=== PATIENT | male | born 1980 | race African-American/Black ===

== ENCOUNTER 2017-06-24 14:09 | Inpatient (IN) | payer BC ==
[~2017-06-24] VITALS: Ht 170.2 cm; Wt 84.9 kg
[2017-06-24] VITALS (12 sets, daily range): BP systolic 148–191; BP diastolic 88–121
[~2017-06-24 14:09] MED LIST: IV NORMAL SALINE 1000ML BAG 1,000 ML IV SCH
[2017-06-24] MEDS ORDERED: IV NORMAL SALINE 1000ML BAG 1,000 ML IV SCH (14:22)
[2017-06-24] MEDS ORDERED: ASPIRIN CHEWABLE 81 MG TABLET. PO ONE (14:30)
--- NOTE | 2017-06-24 14:44 | RAD ---
Indication left-sided chest pain. Some difficulty breathing. A single view of the chest was obtained. No prior imaging of the chest is available. The heart, pulmonary vessels and mediastinum appear normal. The lungs are clear. There is no pleural fluid or pneumothorax. Bony structures appear grossly intact. IMPRESSION: Normal single view of the chest
[2017-06-24 14:45] LABS: CALCIUM 9.8 mg/dL (8.5-10.1); CREATININE 1.3 mg/dL (0.7-1.3); GFR 61.5; POTASSIUM 3.6 mmol/L (3.5-5.1)
[2017-06-24] MEDS ORDERED: IOHEXOL 300 MG/ML 75 ML VIAL IV ONE (14:45)
[2017-06-24 14:49] LABS: BASO # 0.1 x10^3/uL (0.0-0.2); BASO % 1 % (0-3); EOS % 2 % (0-3); HEMATOCRIT 50.9 % (39.0-53.0); HEMOGLOBIN 16.7 g/dL (13.0-17.5); LYMPH # 3.5 x10^3/uL (1.0-4.8); LYMPH % 21 % (24-48); MEAN CORPUSCULAR HEMOGLOBIN 28 pg (25-35); MEAN CORPUSCULAR HGB CONC 33 g/dL (31-37); MEAN CORPUSCULAR VOLUME 86 fL (79-100); MONO % 8 % (0-9); NEUT % 69 % (31-73); PLATELET COUNT 284 x10^3/uL (140-400); RED BLOOD COUNT 5.94 x10^6/uL (4.30-5.70); WHITE BLOOD COUNT 16.8 x10^3/uL (4.0-11.0)
[2017-06-24 14:53] LABS: ALBUMIN 4.4 g/dL (3.4-5.0); ALBUMIN/GLOBULIN RATIO 1.1 (1.0-1.7); TOTAL BILIRUBIN 0.7 mg/dL (0.2-1.0); TOTAL PROTEIN 8.4 g/dL (6.4-8.2)
[2017-06-24] MEDS ORDERED: IOHEXOL 300 MG/ML 75 ML VIAL ONE (14:57)
[2017-06-24] MEDS ORDERED: CONTRAST GIVEN MC PRN ×2 (15:00→17:30)
--- NOTE | 2017-06-24 15:09 | RAD ---
Indication chest pain and shortness of breath for several days. Axial images through the chest were obtained. Examination was tailored for the detection of pulmonary embolus. MIP images were generated and reviewed. Approximately 75 cc of Omnipaque 300 was administered intravenously. No prior CT imaging of the chest is available. The study, evaluating for pulmonary embolus is somewhat limited. There is not optimal opacification of the pulmonary arteries. No large central pulmonary emboli are seen. There are low-density areas associated with right upper lobe branches which is likely artifactual and secondary to streak artifact. The thoracic aorta appears unremarkable. There is no significant hilar or mediastinal adenopathy. An acute parenchymal infiltrate in either lung is not seen. There is no dominant soft tissue mass in either lung. Imaging through the upper abdomen is unremarkable. IMPRESSION: Slightly limited study evaluating for pulmonary embolus. No definite large central pulmonary emboli seen. No acute finding apparent in the chest PQRS Compliance Statement: One or more of the following individualized dose reduction techniques were utilized for this examination: 1. Automated exposure control 2. Adjustment of the mA and/or kV according to patient size 3. Use of iterative reconstruction technique
[2017-06-24] MEDS ORDERED: NITROGLYCERIN OINT 1 GM PACKET. ONE (15:18)
[2017-06-24] MEDS ORDERED: NITROGLYCERIN OINT 1 GM PACKET. TP ONE (15:30)
[2017-06-24] MEDS ORDERED: HEPARIN for IV BOLUS 10,000 UNIT/10 ML VIAL. IV ONE ×2 (15:30→17:15)
--- NOTE | 2017-06-24 15:32 | PDOC2 ---
TASHA WASHINGOTN CORPORATE TRAVEL COORDINATOR 06/24/17 1532: CARDIAC CONSULT DATE OF CONSULT Date of Consult DATE: 06/24/17 TIME: 15:31 REASON FOR CONSULT Reason for Consult: NSTEMI REFERRING PHYSICIAN Referring Physician: Dr. Rojas SOURCE Source: Chart review, Patient HISTORY OF PRESENT ILLNESS HISTORY OF PRESENT ILLNESS This is a 37 yo male, with no significant medical history other than hypertension, who presented with shortness of breath and chest pain. Patient reports dyspnea has been present since Thursday night. Much worse with exertion. Chest pain has been intermittent. Brought on with activity. Resolves with rest. Located in his central chest. Describes as stabbing in nature. Associated with nausea. No diaphoresis, palpitations, or dizziness. Went to work and was sent home as he was visibly dyspneic. Presently stable and CP free. Blood pressure noted to be significantly elevated upon arrival to ED. Initial trop at 37. EKG with t-wave inversion of lateral leads. PAST MEDICAL HISTORY Cardiovascular: HTN Pulmonary: No pertinent hx GI: No pertinent hx Heme/Onc: No pertinent hx Hepatobiliary: No pertinent hx Psych: No pertinent hx Rheumatologic: No pertinent hx Infectious disease: No pertinent hx ENT: No pertinent hx Renal/: No pertinent hx Endocrine: No pertinent hx Dermatology: No pertinent hx PAST SURGICAL HISTORY Past Surgical History: No pertinent history FAMILY HISTORY Family History: Diabetes SOCIAL HISTORY Smoke: No ALCOHOL: none Drugs: Marijuana (occasional ) Lives: with Family CURRENT MEDICATIONS CURRENT MEDICATIONS Current Medications Medications (Trade) Dose Ordered Sig/Natalie Route PRN Reason Start Time Stop Time Status Last Admin Dose Admin Sodium Chloride 1,000 ml @ 100 mls/hr Q10H IV 06/24/17 14:22 06/25/17 00:21 06/24/17 14:34 Aspirin (Children'S Aspirin) 324 mg 1X ONCE PO 06/24/17 14:30 06/24/17 14:31 DC 06/24/17 14:34 Iohexol (Omnipaque 300 Mg/ml) 75 ml 1X ONCE IV 06/24/17 14:45 06/24/17 14:48 DC 06/24/17 14:56 Nitroglycerin (Nitro-Bid Oint) 1 inch 1X ONCE TP 06/24/17 15:30 06/24/17 15:31 06/24/17 15:20 ALLERGIES ALLERGIES: Coded Allergies: No Known Drug Allergies (Unverified , 9/20/17) ROS Review of System 14 point ROS conducted with pertinent positives note above in HPI. PHYSICAL EXAM General: Alert, Oriented X3, Cooperative, No acute distress HEENT: Atraumatic, Mucous membr. moist/pink Lungs: Clear to auscultation, Normal air movement Heart: Regular rate, Normal S1, Normal S2 Abdomen: No tenderness Extremities: No edema, Normal pulses Skin: No breakdown, No significant lesion Neuro: Normal speech, Sensation intact Psych/Mental Status: Mental status NL, Mood NL MUSCULOSKELETAL: Osteoarthritic changes both hands VITALS VITALS Vital Signs Date Time Temp Pulse Resp B/P (MAP) Pulse Ox O2 Delivery O2 Flow Rate FiO2 06/24/17 15:20 76 155/99 06/24/17 14:20 98.2 18 100 Room Air 98.2 LABS Lab: Laboratory Tests Test 06/24/17 14:30 White Blood Count 16.8 x10^3/uL (4.0-11.0) Red Blood Count 5.94 x10^6/uL (4.30-5.70) Hemoglobin 16.7 g/dL (13.0-17.5) Hematocrit 50.9 % (39.0-53.0) Mean Corpuscular Volume 86 fL (79-100) Mean Corpuscular Hemoglobin 28 pg (25-35) Mean Corpuscular Hemoglobin Concent 33 g/dL (31-37) Red Cell Distribution Width 15.0 % (11.5-14.5) Platelet Count 284 x10^3/uL (140-400) Neutrophils (%) (Auto) 69 % (31-73) Lymphocytes (%) (Auto) 21 % (24-48) Monocytes (%) (Auto) 8 % (0-9) Eosinophils (%) (Auto) 2 % (0-3) Basophils (%) (Auto) 1 % (0-3) Neutrophils # (Auto) 11.5 x10^3uL (1.8-7.7) Lymphocytes # (Auto) 3.5 x10^3/uL (1.0-4.8) Monocytes # (Auto) 1.4 x10^3/uL (0.0-1.1) Eosinophils # (Auto) 0.3 x10^3/uL (0.0-0.7) Basophils # (Auto) 0.1 x10^3/uL (0.0-0.2) Sodium Level 144 mmol/L (136-145) Potassium Level 3.6 mmol/L (3.5-5.1) Chloride Level 104 mmol/L (98-107) Carbon Dioxide Level 29 mmol/L (21-32) Anion Gap 11 (6-14) Blood Urea Nitrogen 11 mg/dL (8-26) Creatinine 1.3 mg/dL (0.7-1.3) Estimated GFR (Cockcroft-Gault) 61.5 BUN/Creatinine Ratio 8 (6-20) Glucose Level 92 mg/dL (70-99) Calcium Level 9.8 mg/dL (8.5-10.1) Total Bilirubin 0.7 mg/dL (0.2-1.0) Aspartate Amino Transf (AST/SGOT) 78 U/L (15-37) Alanine Aminotransferase (ALT/SGPT) 43 U/L (16-63) Alkaline Phosphatase 166 U/L (46-116) Troponin I Quantitative 37.709 ng/mL (0.000-0.055) Total Protein 8.4 g/dL (6.4-8.2) Albumin 4.4 g/dL (3.4-5.0) Albumin/Globulin Ratio 1.1 (1.0-1.7) ASSESSMENT/PLAN ASSESSMENT/PLAN 1. NSTEMI 2. Angina 3. Malignant hypertension 4. Dyspnea; PE ruled out Recommendations ASA Heparin gtt per CV protocol Labetalol IV PRN Check lipids Obtain echo to assess LV function/ presence of WMA Given presentation and EKG changes in the setting of NSTEMI, recommend cardiac catheterization with possible PCI. R/b/a discuss with patient and is agreeable. Keep NPO. Problems: YVETTE LAWS MD 06/24/17 1803: CARDIAC CONSULT ALLERGIES ALLERGIES: Coded Allergies: No Known Drug Allergies (Unverified , 06/24/17) ASSESSMENT/PLAN ASSESSMENT/PLAN Pt. seen and examined. Agree with above NURSING CONSULTANT note. Coronary angiography revealed 1V CAD with acute mid RCA plaque rupture. s/p PCI with a drug eluting stent. See orders for med changes. thanks for consultation. Problems: TASHA WASHINGTON APRN Jun 24, 2017 15:32 YVETTE LAWS MD Jun 24, 2017 18:03
--- NOTE | 2017-06-24 15:39 | EKG ---
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
[2017-06-24] MEDS ORDERED: fentaNYL PF VIAL 100 MCG/2 ML VIAL ONE (15:42)
[2017-06-24] MEDS: HEPARIN 25,000UTS/500ML PREMIX 500 ML IV PRN ×2 (15:42→18:09)
[2017-06-24] MEDS ORDERED: MIDAZOLAM HCL/PF 5 MG/5 ML VIAL. ONE (15:43)
[2017-06-24] MEDS ORDERED: NITROGLYCERIN 200 MCG/2 ML SYRINGE FOR CATH/VASC LAB. ONE (15:43)
[2017-06-24] MEDS ORDERED: VERAPAMIL 5 MG/2 ML VIAL. ONE (15:43)
[2017-06-24] MEDS ORDERED: IODIXANOL 320 MG/ML 100 ML VIAL. ONE (15:44)
[2017-06-24] MEDS ORDERED: LIDOCAINE 2% 20 ML VIAL. ONE (15:44)
[2017-06-24] MEDS ORDERED: ONDANSETRON PF 4 MG/2 ML VIAL. IV PRN (15:45)
[2017-06-24] MEDS ORDERED: MORPHINE SULFATE 2 MG/ML DISP.SYRIN. IV PRN (15:45)
[2017-06-24] MEDS ORDERED: TIROFIBAN 12.5MG -0.9% NS 250 ML IV ONE (17:00)
--- NOTE | 2017-06-24 17:09 | PHYS DOC ---
Past Medical History Past Medical History: Hypertension Past Surgical History: No Surgical History Alcohol Use: Occasionally Drug Use: Marijuana Adult General Chief Complaint Chief Complaint: CHEST PAIN HPI HPI 37-year-old male with a past medical history of untreated and uncontrolled hypertension now presents the emergency department complaining of chest pain and shortness of breath. Patient states he is previously been told he had high blood pressure however he was never compliant with treatment and does not currently have a doctor. Over the last several days patient has experienced substernal chest pressure which is intermittent and now relieved. He's been getting exertional shortness of breath which is been worsening. He went to work this morning but got sent home because he was visibly short of breath so he came to the emergency department for evaluation. Patient denies pleuritic pain. Has no productive cough or fever. Patient has never had a stress test or cardiac catheterization. He is not a smoker, he has no high cholesterol that he is aware of however he has not gotten it checked. His mother is a diabetic however he has never been tested for diabetes. He is not aware of history of coronary artery disease and states his mom of complications of diabetes. Review of Systems Review of Systems Constitutional: Denies fever or chills [] Eyes: Denies change in visual acuity, redness, or eye pain [] HENT: Denies nasal congestion or sore throat [] Respiratory: Denies cough or shortness of breath [] Cardiovascular: No additional information not addressed in HPI [] GI: Denies abdominal pain, nausea, vomiting, bloody stools or diarrhea [] : Denies dysuria or hematuria [] Musculoskeletal: Denies back pain or joint pain [] Integument: Denies rash or skin lesions [] Neurologic: Denies headache, focal weakness or sensory changes [] Endocrine: Denies polyuria or polydipsia [] Current Medications Current Medications Current Medications Medications (Trade) Dose Ordered Sig/Natalie Start Time Stop Time Status Last Admin Dose Admin Aspirin (Children'S Aspirin) 324 mg 1X ONCE 06/24/17 14:30 06/24/17 14:31 DC 06/24/17 14:34 324 MG Heparin Sodium (Porcine) (Heparin Sodium) 4,000 unit 1X ONCE 06/24/17 15:30 06/24/17 15:33 DC 06/24/17 15:43 4,000 UNIT Heparin Sodium/ Dextrose 500 ml @ 0 mls/hr CONT PRN 06/24/17 15:30 06/24/17 15:42 20.88 MLS/HR Info (Do NOT chart on this entry -- for MONITORING) 1 each PRN DAILY PRN 06/24/17 15:00 06/26/17 14:59 Iohexol (Omnipaque 300 Mg/ml) 75 ml STK-MED ONCE 06/24/17 14:57 06/24/17 14:58 DC Nitroglycerin (Nitro-Bid Oint) 1 inch STK-MED ONCE 06/24/17 15:18 06/24/17 15:19 DC Sodium Chloride 1,000 ml @ 100 mls/hr Q10H 06/24/17 11:30 06/24/17 21:29 Allergies Allergies Allergies Coded Allergies Type Severity Reaction Last Updated Verified No Known Drug Allergies 06/24/17 No Physical Exam Physical Exam Well-appearing patient no acute distress no vomiting or diaphoresis normal respiratory rate and pulse ox on room air. No tachycardia. Clear lungs regular rate and rhythm. Patient does have some mildly reproducible chest wall tenderness anteriorly bilateral. No skin changes or bony tenderness no subcutaneous air. Nontender abdomen no CVA tenderness normal extremities with no asymmetry Constitutional: Well developed, well nourished, no acute distress, non-toxic appearance. [] HENT: Normocephalic, atraumatic, bilateral external ears normal, oropharynx moist, no oral exudates, nose normal. [] Eyes: PERRLA, EOMI, conjunctiva normal, no discharge. [] Neck: Normal range of motion, no tenderness, supple, no stridor. [] Cardiovascular:Heart rate regular rhythm, no murmur [] Lungs & Thorax: Bilateral breath sounds clear to auscultation [] Abdomen: Bowel sounds normal, soft, no tenderness, no masses, no pulsatile masses. [] Skin: Warm, dry, no erythema, no rash. [] Back: No tenderness, no CVA tenderness. [] Extremities: No tenderness, no cyanosis, no clubbing, ROM intact, no edema. [] Neurologic: Alert and oriented X 3, normal motor function, normal sensory function, no focal deficits noted. [] Psychologic: Affect normal, judgement normal, mood normal. [] Current Patient Data Vital Signs Vital Signs Date Time Temp Pulse Resp B/P (MAP) Pulse Ox O2 Delivery O2 Flow Rate FiO2 06/24/17 15:20 76 155/99 06/24/17 14:20 98.2 18 100 Room Air 98.2 Lab Values Laboratory Tests Test 06/24/17 14:30 White Blood Count 16.8 x10^3/uL (4.0-11.0) H Red Blood Count 5.94 x10^6/uL (4.30-5.70) H Hemoglobin 16.7 g/dL (13.0-17.5) Hematocrit 50.9 % (39.0-53.0) Mean Corpuscular Volume 86 fL (79-100) Mean Corpuscular Hemoglobin 28 pg (25-35) Mean Corpuscular Hemoglobin Concent 33 g/dL (31-37) Red Cell Distribution Width 15.0 % (11.5-14.5) H Platelet Count 284 x10^3/uL (140-400) Neutrophils (%) (Auto) 69 % (31-73) Lymphocytes (%) (Auto) 21 % (24-48) L Monocytes (%) (Auto) 8 % (0-9) Eosinophils (%) (Auto) 2 % (0-3) Basophils (%) (Auto) 1 % (0-3) Neutrophils # (Auto) 11.5 x10^3uL (1.8-7.7) H Lymphocytes # (Auto) 3.5 x10^3/uL (1.0-4.8) Monocytes # (Auto) 1.4 x10^3/uL (0.0-1.1) H Eosinophils # (Auto) 0.3 x10^3/uL (0.0-0.7) Basophils # (Auto) 0.1 x10^3/uL (0.0-0.2) PTT 28 SEC (24-38) Sodium Level 144 mmol/L (136-145) Potassium Level 3.6 mmol/L (3.5-5.1) Chloride Level 104 mmol/L (98-107) Carbon Dioxide Level 29 mmol/L (21-32) Anion Gap 11 (6-14) Blood Urea Nitrogen 11 mg/dL (8-26) Creatinine 1.3 mg/dL (0.7-1.3) Estimated GFR (Cockcroft-Gault) 61.5 BUN/Creatinine Ratio 8 (6-20) Glucose Level 92 mg/dL (70-99) Calcium Level 9.8 mg/dL (8.5-10.1) Magnesium Level 2.2 mg/dL (1.8-2.4) Total Bilirubin 0.7 mg/dL (0.2-1.0) Aspartate Amino Transferase (AST) 78 U/L (15-37) H Alanine Aminotransferase (ALT) 43 U/L (16-63) Alkaline Phosphatase 166 U/L (46-116) H Troponin I Quantitative 37.709 ng/mL (0.000-0.055) QY-Kkh-A-Type Natriuretic Peptide 3657 pg/mL (0-124) H Total Protein 8.4 g/dL (6.4-8.2) H Albumin 4.4 g/dL (3.4-5.0) Albumin/Globulin Ratio 1.1 (1.0-1.7) Laboratory Tests 06/24/17 14:30 Laboratory Tests 06/24/17 14:30 EKG EKG EKG with normal sinus rhythm at [address]. [address] segment depression with T-wave inversion V5 V6 no STEMI interpreted by me[] Radiology/Procedures Radiology/Procedures Chest x-ray no acute disease interpreted by me[] Course & Med Decision Making Course & Med Decision Making Pertinent Labs and Imaging studies reviewed. (See chart for details) 87-year-old male with no prior known cardiac history presents the emergency department with accelerated hypertension initially 220/120. He's pain-free in the ED. Repeat blood pressure value 160/90. Nitroglycerin paste on anterior chest wall and aspirin have been given. EKG with ischemic changes laterally including ST segment depression and T-wave inversion. Troponin returned at 37. This was promptly discussed with cardiology service of Dr. Carballo,. His staff is aware the history and findings. And agrees with CBC admission to hospital list service and they will provide consultation and take patient promptly to the catheterization lab for evaluation and intervention as needed. Cardiology service agrees with cardiac heparinization bolus and drip and this was initiated. She is stable and continues to be pain-free with nitroglycerin paste applied. Vital signs stable and unremarkable after improvement of blood pressure. His discussed with Dr. Allen Cox hospitalist on-call his work history and findings and accept the patient in patient to his services. Critical care 74 minutes [] Dragheather Disclaimer Dragon Disclaimer This electronic medical record was generated, in whole or in part, using a voice recognition dictation system. Departure Departure Impression: Primary Impression: Chest pain Additional Impressions: Non-STEMI (non-ST elevated myocardial infarction) Accelerated hypertension Acute electrocardiogram changes Disposition: ADMITTED INPATIENT Condition: GUARDED Referrals: NO PCP (PCP) Problem Qualifiers ROE DE LEÓN MD Jun 24, 2017 17:09
[2017-06-24] MEDS ORDERED: HEPARIN for IV BOLUS 10,000 UNIT/10 ML VIAL. IART ONE (17:15)
[2017-06-24] MEDS ORDERED: NITROGLYCERIN 200 MCG/2 ML SYRINGE FOR CATH/VASC LAB. IART ONE (17:15)
[2017-06-24] MEDS ORDERED: VERAPAMIL 5 MG/2 ML VIAL. IART ONE (17:15)
[2017-06-24] MEDS ORDERED: MIDAZOLAM HCL/PF 5 MG/5 ML VIAL. IV ONE (17:15)
[2017-06-24] MEDS ORDERED: fentaNYL PF VIAL 100 MCG/2 ML VIAL IV ONE (17:15)
[2017-06-24] MEDS ORDERED: LIDOCAINE 2% 20 ML VIAL. IJ ONE (17:15)
[2017-06-24] MEDS ORDERED: IODIXANOL 320 MG/ML 100 ML VIAL. IART ONE (17:15)
[2017-06-24] MEDS ORDERED: NITROGLYCERIN 200 MCG/2 ML SYRINGE FOR CATH/VASC LAB. ICAR ONE (17:17)
[2017-06-24] MEDS ORDERED: PRASUGREL 10 MG TABLET. ONE (17:18)
[2017-06-24] MEDS ORDERED: PRASUGREL 10 MG TABLET. PO ONE (17:30)
[2017-06-24] MEDS: TIROFIBAN 12.5MG -0.9% NS 250 ML IV PRN (17:40)
--- NOTE | 2017-06-24 19:05 | CARD ---
APPROVED REPORT Procedure(s) performed: SEDATION TIME: 54 MINUTES Coronary angiography PCI of the RCA HISTORY The patient is a 37 year-old male with a history of : tobacco history() , hypertension. INDICATION The indication(s) include : non-STEMI Trop of 39. CASE TECHNIQUE During this case, Fluoroscopy and low osmolar contrast were used for imaging. PROCEDURE NARRATIVE The patient was brought electively to the cardiac catheterization lab. A timeout was performed confi rming the patient's name, date of , procedure, and site of procedure. All necessary personnel w ere wearing the appropriate protective equipment and radiation monitor devices. After explaining the risks and benefits of the procedure and alternatives, informed consent was obtained. (See nursing no minh for medications administered). The right wrist was sterilely prepped and draped in the usual fas hion. The right wrist was infiltrated with 1 mL of 2% lidocaine for subcutaneous anesthesia. A 6 Fr ench Terumo glide sheath was inserted into the right radial artery without difficulty. Right and lef t coronary angiography was performed using a 6Fr TIG 4.0 catheter. HEMODYNAMICS: AO: 180/84 LEFT VENTRICULOGRAM: Deferred due to high contrast load from recent CT scan. CORONARY ANGIOGRAPHY: LM is a large caliber vessel with normal angiographic appearance. LAD is a large caliber vessel with normal angiographic appearance. Ramus is a moderate caliber bifurcating vessel with an ostial 40% stenosis. LCx is a moderate to large caliber co-dominant vessel with normal angiographic appearance. OM1 is a small caliber vessel with normal angiographic appearance. LPL/LPDA is a moderate to large caliber vessel with normal angiographic appearance. RCA is a moderate caliber tortuous co-dominant vessel with a proximal to mid 50% stenosis, followed b y a mid acute plaque rupture in the mid segment with a 90% stenosis. RPDA and RPL are small caliber vessels with normal angiographic appearance. INTERVENTIONAL TECHNIQUE: Based upon the presenting symptoms of dyspnea, chest pain and elevated biomarkers an intervention was performed. Heparin and tirofiban were used for anticoagulation. Through a 6F JR4 guide catheter, a 0 .014'' Prowater wire was advanced to the distal RCA. Next, a Trek 2.5/12 balloon was used to angiopla sty the RCA. The lesion was then stented with a 3.0/15 Xience SOPHIE at 12 kings for 1 min. Post-PCI angio graphy revealed excellent stent expansion with FAHAD 3 flow. There was proximal pseudostenosis related to the wire which resolved after NTG administration and removal. All catheter exchanges and adv ancements were performed over a guidewire. At case completion the right radial sheath was removed an d a Terumo radial band was applied with 13 ml of air. The patient tolerated the procedure well and t here were no immediate complications. The patient received Prasugrel 60mg at case completion. Conclusion 1. NSTEMI with one vessel CAD involving the mid RCA 2. Successful PCI of the mid RCA with implantation of a Xience 3.0/18 SOPHIE. Recommendations ASA 81mg daily indefinitely Prasugrel 10mg daily for 1 full year, consider lifelong DAPT if tolerated High dose statin therapy Jewel-inh after renal function stable. Cardiac rehab referral.
[2017-06-24] MEDS: ATORVASTATIN CALCIUM 20 MG TABLET PO SCH (21:28)
[2017-06-24] MEDS: LABETALOL 20 MG/4 ML DISP.SYRIN. IVP PRN (21:37)
--- NOTE | 2017-06-24 21:43 | HP ---
ADMIT DATE: 06/24/2017 CHIEF COMPLAINT: Chest pain. HISTORY OF PRESENT ILLNESS: The patient is a pleasant, healthy 37-year-old male who presented with chest pain. He does have hypertension. His pressures were in the 200s when he arrived, but interestingly, he had ST changes as troponin was 37. He was taken emergently to the photo lab manager and received a stent. He is now being examined on the telemetry floor. PAST MEDICAL HISTORY: Hypertension, noncompliance. ALLERGIES: None. FAMILY HISTORY: Diabetes. SOCIAL HISTORY: Does not drink, smoke or take drugs. MEDICATIONS: Reviewed. REVIEW OF SYSTEMS: GENERAL: No history of weight change, weakness or fevers. SKIN: No bruising, hair changes or rashes. EYES: No blurred, double or loss of vision. NOSE AND THROAT: No history of nosebleeds, hoarseness or sore throat. HEART: No history of palpitations, chest pain or shortness of breath on exertion. LUNGS: Denies cough, hemoptysis, wheezing or shortness of breath. GASTROINTESTINAL: Denies changes in appetite, nausea, vomiting, diarrhea or constipation. GENITOURINARY: No history of frequency, urgency, hesitancy or nocturia. NEUROLOGIC: Denies history of numbness, tingling, tremor or weakness. PSYCHIATRIC: No history of panic, anxiety or depression. ENDOCRINE: No history of heat or cold intolerance, polyuria or polydipsia. EXTREMITIES: Denies muscle weakness, joint pain, pain on walking or stiffness. PHYSICAL EXAMINATION: VITAL SIGNS: Temperature afebrile, pulse 92, respirations 18, blood pressure is down to 180/106. It was as high as 208/129. HEART: Distant S1, S2. LUNGS: Clear. ABDOMEN: Soft. EXTREMITIES: No edema. SKIN: No rashes. PSYCHIATRIC: He is stable. VASCULAR: Good capillary refill. ENDOCRINE: No thyromegaly. LYMPHATICS: No cervical nodes. HEMATOPOIETIC: No bruising. LABORATORY DATA: White count 16.8, hemoglobin 16.7, platelets 284. Electrolytes normal. Troponin was 37.709. BNP 3657. EKG shows ST changes. ASSESSMENT AND PLAN: Acute myocardial infarction with the incidental finding of leukocytosis. The patient went emergent for cardiac catheterization and stent, suspect the leukocytosis is reactive, but will follow his vital signs and temperature closely if he spikes a fever or consider adding antibiotics. Continue cardiac monitoring, add in beta sandra, RJ inhibitors, statins and as needed Lasix. PROGNOSIS: Guarded. COLBY JAMESON DO DR: DENIS/ludy JOB#: [id number] / [id number]
[2017-06-25] VITALS (10 sets, daily range): BP systolic 157–181; BP diastolic 77–124
[2017-06-25] MEDS: TIROFIBAN 12.5MG -0.9% NS 250 ML IV PRN (03:53)
[2017-06-25] MEDS: LABETALOL 20 MG/4 ML DISP.SYRIN. IVP PRN ×2 (03:53→20:43)
[2017-06-25 05:32] LABS: CHOLESTEROL/HDL RATIO 4.9
[2017-06-25 08:38] LABS: CALCIUM 8.8 mg/dL (8.5-10.1); CREATININE 1.2 mg/dL (0.7-1.3); GFR 81.6; POTASSIUM 3.3 mmol/L (3.5-5.1)
[2017-06-25] MEDS: PRASUGREL 10 MG TABLET. PO SCH (08:45)
[2017-06-25] MEDS: ASPIRIN ENTERIC COATED 81 MG TABLET.DR. PO SCH (08:45)
[2017-06-25] MEDS ORDERED: LISI-338 PO (10:39)
[2017-06-25] MEDS ORDERED: ASPI-612 PO (10:39)
[2017-06-25] MEDS ORDERED: PRAS10TA9 PO (10:39)
[2017-06-25] MEDS ORDERED: ATOR40TA59 PO (10:39)
[2017-06-25] MEDS ORDERED: CARV3.122 PO (10:39)
--- NOTE | 2017-06-25 11:09 | PDOC ---
CARDIO Progress Notes Date and Time Date of Service 06/25/17 Time of Evaluation 1030 Subjective Subjective: No Chest Pain, No shortness of breath, No Palpitations Vitals Vitals Vital Signs Date Time Temp Pulse Resp B/P (MAP) Pulse Ox O2 Delivery O2 Flow Rate FiO2 06/25/17 08:00 Room Air 06/25/17 07:00 98.9 62 16 160/106 (124) 99 98.9 Weight Weight [ ] Laboratory Labs Laboratory Tests Test 06/24/17 14:30 06/24/17 17:06 06/25/17 01:00 06/25/17 04:45 White Blood Count 16.8 x10^3/uL (4.0-11.0) Red Blood Count 5.94 x10^6/uL (4.30-5.70) Hemoglobin 16.7 g/dL (13.0-17.5) Hematocrit 50.9 % (39.0-53.0) Mean Corpuscular Volume 86 fL (79-100) Mean Corpuscular Hemoglobin 28 pg (25-35) Mean Corpuscular Hemoglobin Concent 33 g/dL (31-37) Red Cell Distribution Width 15.0 % (11.5-14.5) Platelet Count 284 x10^3/uL (140-400) Neutrophils (%) (Auto) 69 % (31-73) Lymphocytes (%) (Auto) 21 % (24-48) Monocytes (%) (Auto) 8 % (0-9) Eosinophils (%) (Auto) 2 % (0-3) Basophils (%) (Auto) 1 % (0-3) Neutrophils # (Auto) 11.5 x10^3uL (1.8-7.7) Lymphocytes # (Auto) 3.5 x10^3/uL (1.0-4.8) Monocytes # (Auto) 1.4 x10^3/uL (0.0-1.1) Eosinophils # (Auto) 0.3 x10^3/uL (0.0-0.7) Basophils # (Auto) 0.1 x10^3/uL (0.0-0.2) Activated Partial Thromboplast Time 28 SEC (24-38) Sodium Level 144 mmol/L (136-145) Potassium Level 3.6 mmol/L (3.5-5.1) Chloride Level 104 mmol/L (98-107) Carbon Dioxide Level 29 mmol/L (21-32) Anion Gap 11 (6-14) Blood Urea Nitrogen 11 mg/dL (8-26) Creatinine 1.3 mg/dL (0.7-1.3) Estimated GFR (Cockcroft-Gault) 61.5 BUN/Creatinine Ratio 8 (6-20) Glucose Level 92 mg/dL (70-99) Calcium Level 9.8 mg/dL (8.5-10.1) Magnesium Level 2.2 mg/dL (1.8-2.4) Total Bilirubin 0.7 mg/dL (0.2-1.0) Aspartate Amino Transf (AST/SGOT) 78 U/L (15-37) Alanine Aminotransferase (ALT/SGPT) 43 U/L (16-63) Alkaline Phosphatase 166 U/L (46-116) Troponin I Quantitative 37.709 ng/mL (0.000-0.055) 32.302 ng/mL (0.000-0.055) 32.175 ng/mL (0.000-0.055) AS-Yhf-Z-Type Natriuretic Peptide 3657 pg/mL (0-124) Total Protein 8.4 g/dL (6.4-8.2) Albumin 4.4 g/dL (3.4-5.0) Albumin/Globulin Ratio 1.1 (1.0-1.7) Activated Clotting Time 213 sec (92-181) Triglycerides Level 169 mg/dL (0-150) Cholesterol Level 161 mg/dL (0-200) LDL Cholesterol, Calculated 94 mg/dL (0-100) VLDL Cholesterol, Calculated 34 mg/dL (0-40) Non-HDL Cholesterol Calculated 128 mg/dL (0-129) HDL Cholesterol 33 mg/dL (40-60) Cholesterol/HDL Ratio 4.9 Test 06/25/17 07:43 Sodium Level 142 mmol/L (136-145) Potassium Level 3.3 mmol/L (3.5-5.1) Chloride Level 106 mmol/L (98-107) Carbon Dioxide Level 26 mmol/L (21-32) Anion Gap 10 (6-14) Blood Urea Nitrogen 11 mg/dL (8-26) Creatinine 1.2 mg/dL (0.7-1.3) Estimated GFR (Cockcroft-Gault) 81.6 Glucose Level 85 mg/dL (70-99) Calcium Level 8.8 mg/dL (8.5-10.1) Magnesium Level 2.0 mg/dL (1.8-2.4) Troponin I Quantitative 30.382 ng/mL (0.000-0.055) Physical Exam HEENT: Neck Supple W Full Motion Chest: Symmetric LUNGS: Clear to Auscultation Heart: S1S2, RRR Abdomen: Soft N/T Extremities: No Edema, No Calf Tenderness, Other (right radial arteriotomy site soft, clean, and dry. No erythema, ecchymosis, or hematoma present. Neurovascular status intact. ) Neurology: alert, oriented, follow commands Assessment Assessment 1. NSTEMI 2. CAD; cath revealed 1 vessel disease; s/p PCI/SOPHIE to RCA. 3. Malignant hypertension 4. Dyspnea; resolved Recommendations Secondary prevention measures including DAPT with ASA and Effient. High dose statin therapy. Add BB and RJ. Monitor BP. Notify office if consistently >150 Cardiac rehab referral Risk stratification modification F/u in our office with Dr. Carballo as previously scheduled. TASHA WASHINGTON APRN Jun 25, 2017 11:09
[2017-06-25] MEDS ORDERED: LISINOPRIL 5 MG TABLET. PO SCH (11:15)
[2017-06-25] MEDS ORDERED: CARVEDILOL 3.125 MG TABLET. PO SCH (11:15)
--- NOTE | 2017-06-25 11:37 | PDOC ---
PROGRESS NOTES Chief Complaint Chief Complaint chest pain, SOA chest wall tenderness NSTEMI History of Present Illness History of Present Illness Mr. Muhammad was awake and sitting up in bed. His was present as well. Mr. Muhammad was alert and conversant with the healthcare team. 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 Patient was informed about his diagnosis of NSTEMI and the stent placement. He replied that his Aunt has had 5 stents. He was educated on signs of heart failure, the medicines he would likely take upon leaving the hospital, and instructed to check in with his primary care provider. Vitals Vitals Vital Signs Date Time Temp Pulse Resp B/P (MAP) Pulse Ox O2 Delivery O2 Flow Rate FiO2 06/25/17 08:00 Room Air 06/25/17 07:00 98.9 62 16 160/106 (124) 99 98.9 Physical Exam Physical Exam Mr. Barth was awake and engaged in conversant with the healthcare team. He denied any chest pain at the moment. No difficulty breathing or lethargy. No pain, aching, or swelling in extremities Extremities were warm to palpation General: Alert, Oriented X3, Cooperative, No acute distress Heart: Regular rate, Normal S1, Normal S2 Lungs: Clear Abdomen: No tenderness Extremities: No edema, Normal pulses Skin: No breakdown, No significant lesion Labs LABS Laboratory Tests Test 06/24/17 14:30 06/24/17 17:06 06/25/17 01:00 06/25/17 04:45 White Blood Count 16.8 x10^3/uL (4.0-11.0) Red Blood Count 5.94 x10^6/uL (4.30-5.70) Hemoglobin 16.7 g/dL (13.0-17.5) Hematocrit 50.9 % (39.0-53.0) Mean Corpuscular Volume 86 fL (79-100) Mean Corpuscular Hemoglobin 28 pg (25-35) Mean Corpuscular Hemoglobin Concent 33 g/dL (31-37) Red Cell Distribution Width 15.0 % (11.5-14.5) Platelet Count 284 x10^3/uL (140-400) Neutrophils (%) (Auto) 69 % (31-73) Lymphocytes (%) (Auto) 21 % (24-48) Monocytes (%) (Auto) 8 % (0-9) Eosinophils (%) (Auto) 2 % (0-3) Basophils (%) (Auto) 1 % (0-3) Neutrophils # (Auto) 11.5 x10^3uL (1.8-7.7) Lymphocytes # (Auto) 3.5 x10^3/uL (1.0-4.8) Monocytes # (Auto) 1.4 x10^3/uL (0.0-1.1) Eosinophils # (Auto) 0.3 x10^3/uL (0.0-0.7) Basophils # (Auto) 0.1 x10^3/uL (0.0-0.2) Activated Partial Thromboplast Time 28 SEC (24-38) Sodium Level 144 mmol/L (136-145) Potassium Level 3.6 mmol/L (3.5-5.1) Chloride Level 104 mmol/L (98-107) Carbon Dioxide Level 29 mmol/L (21-32) Anion Gap 11 (6-14) Blood Urea Nitrogen 11 mg/dL (8-26) Creatinine 1.3 mg/dL (0.7-1.3) Estimated GFR (Cockcroft-Gault) 61.5 BUN/Creatinine Ratio 8 (6-20) Glucose Level 92 mg/dL (70-99) Calcium Level 9.8 mg/dL (8.5-10.1) Magnesium Level 2.2 mg/dL (1.8-2.4) Total Bilirubin 0.7 mg/dL (0.2-1.0) Aspartate Amino Transf (AST/SGOT) 78 U/L (15-37) Alanine Aminotransferase (ALT/SGPT) 43 U/L (16-63) Alkaline Phosphatase 166 U/L (46-116) Troponin I Quantitative 37.709 ng/mL (0.000-0.055) 32.302 ng/mL (0.000-0.055) 32.175 ng/mL (0.000-0.055) HI-Okj-D-Type Natriuretic Peptide 3657 pg/mL (0-124) Total Protein 8.4 g/dL (6.4-8.2) Albumin 4.4 g/dL (3.4-5.0) Albumin/Globulin Ratio 1.1 (1.0-1.7) Activated Clotting Time 213 sec (92-181) Triglycerides Level 169 mg/dL (0-150) Cholesterol Level 161 mg/dL (0-200) LDL Cholesterol, Calculated 94 mg/dL (0-100) VLDL Cholesterol, Calculated 34 mg/dL (0-40) Non-HDL Cholesterol Calculated 128 mg/dL (0-129) HDL Cholesterol 33 mg/dL (40-60) Cholesterol/HDL Ratio 4.9 Test 06/25/17 07:43 Sodium Level 142 mmol/L (136-145) Potassium Level 3.3 mmol/L (3.5-5.1) Chloride Level 106 mmol/L (98-107) Carbon Dioxide Level 26 mmol/L (21-32) Anion Gap 10 (6-14) Blood Urea Nitrogen 11 mg/dL (8-26) Creatinine 1.2 mg/dL (0.7-1.3) Estimated GFR (Cockcroft-Gault) 81.6 Glucose Level 85 mg/dL (70-99) Calcium Level 8.8 mg/dL (8.5-10.1) Magnesium Level 2.0 mg/dL (1.8-2.4) Troponin I Quantitative 30.382 ng/mL (0.000-0.055) Review of Systems Review of Systems admits to hunger admits to lethargy Assessment and Plan Assessmemt and Plan Problems Medical Problems: (1) Accelerated hypertension Status: Acute (2) Acute electrocardiogram changes Status: Acute (3) Chest pain Status: Acute (4) Non-STEMI (non-ST elevated myocardial infarction) Status: Acute Assessment: chest pain, SOA chest wall tenderness NSTEMI Plan: 1. advise patient to return to hospital if leg edema or shortness of air 2. Advise patients comply with drug regimen 3. Continue cardiac monitoring 4. Will order PT for patient 5. Okay with discharge if cardiology agrees. Problems: Comment Review of Relevant I have reviewed the following items sourav (where applicable) has been applied. Labs Laboratory Tests Test 06/24/17 14:30 06/24/17 17:06 06/25/17 01:00 06/25/17 04:45 White Blood Count 16.8 x10^3/uL (4.0-11.0) Red Blood Count 5.94 x10^6/uL (4.30-5.70) Hemoglobin 16.7 g/dL (13.0-17.5) Hematocrit 50.9 % (39.0-53.0) Mean Corpuscular Volume 86 fL (79-100) Mean Corpuscular Hemoglobin 28 pg (25-35) Mean Corpuscular Hemoglobin Concent 33 g/dL (31-37) Red Cell Distribution Width 15.0 % (11.5-14.5) Platelet Count 284 x10^3/uL (140-400) Neutrophils (%) (Auto) 69 % (31-73) Lymphocytes (%) (Auto) 21 % (24-48) Monocytes (%) (Auto) 8 % (0-9) Eosinophils (%) (Auto) 2 % (0-3) Basophils (%) (Auto) 1 % (0-3) Neutrophils # (Auto) 11.5 x10^3uL (1.8-7.7) Lymphocytes # (Auto) 3.5 x10^3/uL (1.0-4.8) Monocytes # (Auto) 1.4 x10^3/uL (0.0-1.1) Eosinophils # (Auto) 0.3 x10^3/uL (0.0-0.7) Basophils # (Auto) 0.1 x10^3/uL (0.0-0.2) Activated Partial Thromboplast Time 28 SEC (24-38) Sodium Level 144 mmol/L (136-145) Potassium Level 3.6 mmol/L (3.5-5.1) Chloride Level 104 mmol/L (98-107) Carbon Dioxide Level 29 mmol/L (21-32) Anion Gap 11 (6-14) Blood Urea Nitrogen 11 mg/dL (8-26) Creatinine 1.3 mg/dL (0.7-1.3) Estimated GFR (Cockcroft-Gault) 61.5 BUN/Creatinine Ratio 8 (6-20) Glucose Level 92 mg/dL (70-99) Calcium Level 9.8 mg/dL (8.5-10.1) Magnesium Level 2.2 mg/dL (1.8-2.4) Total Bilirubin 0.7 mg/dL (0.2-1.0) Aspartate Amino Transf (AST/SGOT) 78 U/L (15-37) Alanine Aminotransferase (ALT/SGPT) 43 U/L (16-63) Alkaline Phosphatase 166 U/L (46-116) Troponin I Quantitative 37.709 ng/mL (0.000-0.055) 32.302 ng/mL (0.000-0.055) 32.175 ng/mL (0.000-0.055) OL-Zjl-I-Type Natriuretic Peptide 3657 pg/mL (0-124) Total Protein 8.4 g/dL (6.4-8.2) Albumin 4.4 g/dL (3.4-5.0) Albumin/Globulin Ratio 1.1 (1.0-1.7) Activated Clotting Time 213 sec (92-181) Triglycerides Level 169 mg/dL (0-150) Cholesterol Level 161 mg/dL (0-200) LDL Cholesterol, Calculated 94 mg/dL (0-100) VLDL Cholesterol, Calculated 34 mg/dL (0-40) Non-HDL Cholesterol Calculated 128 mg/dL (0-129) HDL Cholesterol 33 mg/dL (40-60) Cholesterol/HDL Ratio 4.9 Test 06/25/17 07:43 Sodium Level 142 mmol/L (136-145) Potassium Level 3.3 mmol/L (3.5-5.1) Chloride Level 106 mmol/L (98-107) Carbon Dioxide Level 26 mmol/L (21-32) Anion Gap 10 (6-14) Blood Urea Nitrogen 11 mg/dL (8-26) Creatinine 1.2 mg/dL (0.7-1.3) Estimated GFR (Cockcroft-Gault) 81.6 Glucose Level 85 mg/dL (70-99) Calcium Level 8.8 mg/dL (8.5-10.1) Magnesium Level 2.0 mg/dL (1.8-2.4) Troponin I Quantitative 30.382 ng/mL (0.000-0.055) Laboratory Tests Test 06/24/17 14:30 06/24/17 17:06 06/25/17 01:00 06/25/17 04:45 White Blood Count 16.8 x10^3/uL (4.0-11.0) Red Blood Count 5.94 x10^6/uL (4.30-5.70) Hemoglobin 16.7 g/dL (13.0-17.5) Hematocrit 50.9 % (39.0-53.0) Mean Corpuscular Volume 86 fL (79-100) Mean Corpuscular Hemoglobin 28 pg (25-35) Mean Corpuscular Hemoglobin Concent 33 g/dL (31-37) Red Cell Distribution Width 15.0 % (11.5-14.5) Platelet Count 284 x10^3/uL (140-400) Neutrophils (%) (Auto) 69 % (31-73) Lymphocytes (%) (Auto) 21 % (24-48) Monocytes (%) (Auto) 8 % (0-9) Eosinophils (%) (Auto) 2 % (0-3) Basophils (%) (Auto) 1 % (0-3) Neutrophils # (Auto) 11.5 x10^3uL (1.8-7.7) Lymphocytes # (Auto) 3.5 x10^3/uL (1.0-4.8) Monocytes # (Auto) 1.4 x10^3/uL (0.0-1.1) Eosinophils # (Auto) 0.3 x10^3/uL (0.0-0.7) Basophils # (Auto) 0.1 x10^3/uL (0.0-0.2) Activated Partial Thromboplast Time 28 SEC (24-38) Sodium Level 144 mmol/L (136-145) Potassium Level 3.6 mmol/L (3.5-5.1) Chloride Level 104 mmol/L (98-107) Carbon Dioxide Level 29 mmol/L (21-32) Anion Gap 11 (6-14) Blood Urea Nitrogen 11 mg/dL (8-26) Creatinine 1.3 mg/dL (0.7-1.3) Estimated GFR (Cockcroft-Gault) 61.5 BUN/Creatinine Ratio 8 (6-20) Glucose Level 92 mg/dL (70-99) Calcium Level 9.8 mg/dL (8.5-10.1) Magnesium Level 2.2 mg/dL (1.8-2.4) Total Bilirubin 0.7 mg/dL (0.2-1.0) Aspartate Amino Transf (AST/SGOT) 78 U/L (15-37) Alanine Aminotransferase (ALT/SGPT) 43 U/L (16-63) Alkaline Phosphatase 166 U/L (46-116) Troponin I Quantitative 37.709 ng/mL (0.000-0.055) 32.302 ng/mL (0.000-0.055) 32.175 ng/mL (0.000-0.055) QT-Pkn-F-Type Natriuretic Peptide 3657 pg/mL (0-124) Total Protein 8.4 g/dL (6.4-8.2) Albumin 4.4 g/dL (3.4-5.0) Albumin/Globulin Ratio 1.1 (1.0-1.7) Activated Clotting Time 213 sec (92-181) Triglycerides Level 169 mg/dL (0-150) Cholesterol Level 161 mg/dL (0-200) LDL Cholesterol, Calculated 94 mg/dL (0-100) VLDL Cholesterol, Calculated 34 mg/dL (0-40) Non-HDL Cholesterol Calculated 128 mg/dL (0-129) HDL Cholesterol 33 mg/dL (40-60) Cholesterol/HDL Ratio 4.9 Test 06/25/17 07:43 Sodium Level 142 mmol/L (136-145) Potassium Level 3.3 mmol/L (3.5-5.1) Chloride Level 106 mmol/L (98-107) Carbon Dioxide Level 26 mmol/L (21-32) Anion Gap 10 (6-14) Blood Urea Nitrogen 11 mg/dL (8-26) Creatinine 1.2 mg/dL (0.7-1.3) Estimated GFR (Cockcroft-Gault) 81.6 Glucose Level 85 mg/dL (70-99) Calcium Level 8.8 mg/dL (8.5-10.1) Magnesium Level 2.0 mg/dL (1.8-2.4) Troponin I Quantitative 30.382 ng/mL (0.000-0.055) Medications Current Medications Sodium Chloride 1,000 ml @ 100 mls/hr Q10H IV Last administered on 06/24/17 14:34; Start 06/24/17 at 14:22; Stop 06/25/17 at 00:21; Status DC Aspirin (Children'S Aspirin) 324 mg 1X ONCE PO Last administered on 06/24/17 14:34; Start 06/24/17 at 14:30; Stop 06/24/17 at 14:31; Status DC Iohexol (Omnipaque 300 Mg/ml) 75 ml 1X ONCE IV Last administered on 06/24/17 14:56; Start 06/24/17 at 14:45; Stop 06/24/17 at 14:48; Status DC Info (Do NOT chart on this entry -- for MONITORING) 1 each PRN DAILY PRN MC SEE COMMENTS; Start 06/24/17 at 15:00; Stop 06/26/17 at 14:59 Iohexol (Omnipaque 300 Mg/ml) 75 ml STK-MED ONCE .ROUTE ; Start 06/24/17 at 14: 57; Stop 06/24/17 at 14:58; Status DC Nitroglycerin (Nitro-Bid Oint) 1 inch 1X ONCE TP Last administered on 15:20; Start 06/24/17 at 15:30; Stop 06/24/17 at 15:31; Status DC Nitroglycerin (Nitro-Bid Oint) 1 inch STK-MED ONCE .ROUTE ; Start 06/24/17 at 15 :18; Stop 06/24/17 at 15:19; Status DC Sodium Chloride 1,000 ml @ 100 mls/hr Q10H IV ; Start 06/24/17 at 11:30; Stop 06/24/17 at 21:29; Status DC Heparin Sodium (Porcine) (Heparin Sodium) 4,000 unit 1X ONCE IV Last administered on 06/24/17 15:43; Start 06/24/17 at 15:30; Stop 06/24/17 at 15:33 ; Status DC Heparin Sodium/ Dextrose 500 ml @ 0 mls/hr CONT PRN IV SEE I/O RECORD Last administered on 06/24/17 15:42; Start 06/24/17 at 15:30; Stop 06/25/17 at 09:57 ; Status DC Fentanyl Citrate (Fentanyl 2ml Vial) 100 mcg STK-MED ONCE .ROUTE ; Start at 15:42; Stop 06/24/17 at 15:43; Status DC Midazolam HCl (Versed) 5 mg STK-MED ONCE .ROUTE ; Start 06/24/17 at 15:43; Stop 06/24/17 at 15:44; Status DC Verapamil HCl (Verapamil) 5 mg STK-MED ONCE .ROUTE ; Start 06/24/17 at 15:43; Stop 06/24/17 at 15:44; Status DC Nitroglycerin (Nitroglycerin) 200 mcg STK-MED ONCE .ROUTE ; Start 06/24/17 at 15 :43; Stop 06/24/17 at 15:44; Status DC Iodixanol (Visipaque 320) 100 ml STK-MED ONCE .ROUTE ; Start 06/24/17 at 15:44; Stop 06/24/17 at 15:45; Status DC Lidocaine HCl 20 ml STK-MED ONCE .ROUTE ; Start 06/24/17 at 15:44; Stop at 15:45; Status DC Heparin Sodium/ Sodium Chloride 1,000 ml @ As Directed STK-MED ONCE .ROUTE ; Start 06/24/17 at 15:44; Stop 06/24/17 at 15:45; Status DC Ondansetron HCl (Zofran) 4 mg PRN Q8HRS PRN IV NAUSEA/VOMITING; Start 06/24/17 at 15:45; Stop 06/25/17 at 15:44 Morphine Sulfate 2 mg PRN Q2HR PRN IV PAIN; Start 06/24/17 at 15:45; Stop 06/25 at 15:44 Atorvastatin Calcium (Lipitor) 20 mg QHS PO Last administered on 06/24/17 21: 28; Start 06/24/17 at 21:00 Labetalol HCl (Normodyne) 20 mg PRN Q2HR PRN IVP HYPERTENSION, SEE COMMENTS Last administered on 06/25/17 03:53; Start 06/24/17 at 16:00 Tirofiban/Sodium Chloride 250 ml @ As Directed STK-MED ONCE IV ; Start at 17:00; Stop 06/24/17 at 17:01; Status DC Nitroglycerin (Nitroglycerin) 200 mcg 1X ONCE IART Last administered on 17:34; Start 06/24/17 at 17:15; Stop 06/24/17 at 17:22; Status DC Verapamil HCl (Verapamil) 2.5 mg 1X ONCE IART Last administered on 06/24/17 17:39; Start 06/24/17 at 17:15; Stop 06/24/17 at 17:22; Status DC Heparin Sodium (Porcine) (Heparin Sodium) 2,500 unit 1X ONCE IART Last administered on 06/24/17 17:36; Start 06/24/17 at 17:15; Stop 06/24/17 at 17:22 ; Status DC Heparin Sodium/ Sodium Chloride 1,000 unit 1X ONCE IART Last administered on 17:39; Start 06/24/17 at 17:15; Stop 06/24/17 at 17:22; Status DC Heparin Sodium/ Sodium Chloride 1,000 unit 1X ONCE IART Last administered on 17:40; Start 06/24/17 at 17:15; Stop 06/24/17 at 17:22; Status DC Midazolam HCl (Versed) 5 mg 1X ONCE IV Last administered on 06/24/17 17:35; Start 06/24/17 at 17:15; Stop 06/24/17 at 17:22; Status DC Fentanyl Citrate (Fentanyl 2ml Vial) 100 mcg 1X ONCE IV Last administered on 17:39; Start 06/24/17 at 17:15; Stop 06/24/17 at 17:22; Status DC Iodixanol (Visipaque 320) 100 ml 1X ONCE IART Last administered on 06/24/17 17:39; Start 06/24/17 at 17:15; Stop 06/24/17 at 17:22; Status DC Heparin Sodium (Porcine) (Heparin Sodium) 1,000 unit 1X ONCE IV Last administered on 06/24/17 17:37; Start 06/24/17 at 17:15; Stop 06/24/17 at 17:22 ; Status DC Lidocaine HCl 20 ml 1X ONCE IJ Last administered on 06/24/17 17:38; Start at 17:15; Stop 06/24/17 at 17:22; Status DC Tirofiban/Sodium Chloride 250 ml @ 15.7 mls/hr CONT PRN IV PER PROTOCOL Last administered on 06/25/17 03:53; Start 06/24/17 at 17:15; Stop 06/25/17 at 11:14 ; Status DC Info (Do NOT chart on this entry -- for MONITORING) 1 each PRN DAILY PRN MC SEE COMMENTS; Start 06/24/17 at 17:30; Stop 06/26/17 at 17:29 Nitroglycerin (Nitroglycerin) 200 mcg 1X ONCE ICAR Last administered on 17:34; Start 06/24/17 at 17:17; Stop 06/24/17 at 17:23; Status DC Prasugrel (Effient) 60 mg 1X ONCE PO Last administered on 06/24/17 17:34; Start 06/24/17 at 17:30; Stop 06/24/17 at 17:31; Status DC Prasugrel (Effient) 10 mg STK-MED ONCE .ROUTE ; Start 06/24/17 at 17:18; Stop at 17:19; Status DC Aspirin (Ecotrin) 81 mg DAILYWBKFT PO Last administered on 06/25/17 08:45; Start 06/25/17 at 08:00 Prasugrel (Effient) 10 mg DAILYWBKFT PO Last administered on 06/25/17 08:45; Start 06/25/17 at 08:00 Carvedilol (Coreg) 3.125 mg BIDWMEALS PO ; Start 06/25/17 at 11:15 Lisinopril (Prinivil) 5 mg DAILY PO ; Start 06/25/17 at 11:15 Potassium Chloride (Klor-Con) 40 meq 1X ONCE PO ; Start 06/25/17 at 11:45; Stop 06/25/17 at 11:46 Active Scripts Active Effient (Prasugrel Hcl) 10 Mg Tablet 10 Mg PO DAILYWBKFT 30 Days Lisinopril 5 Mg Tablet 5 Mg PO DAILY 30 Days Carvedilol 3.125 Mg Tablet 3.125 Mg PO BIDWMEALS 30 Days Atorvastatin Calcium 40 Mg Tablet 1 Tab PO QHS Aspirin Ec (Aspirin) 81 Mg Tablet.dr 81 Mg PO DAILYWBKFT 30 Days Vitals/I & O Vital Sign - Last 24 Hours 06/24/17 06/24/17 06/24/17 06/24/17 14:20 14:47 14:57 15:20 Temp 98.2 98.2 Pulse 90 58 82 76 Resp 18 B/P (MAP) 208/129 (155) 164/108 (126) 155/99 (117) 155/99 Pulse Ox 100 99 O2 Delivery Room Air Room Air Room Air 06/24/17 06/24/17 06/24/17 06/24/17 15:27 17:39 17:39 17:42 Pulse 74 60 60 Resp 18 18 B/P (MAP) 188/117 (140) 154/97 Pulse Ox 99 93 93 O2 Delivery Room Air Room Air Room Air 06/24/17 06/24/17 06/24/17 06/24/17 18:00 18:15 18:30 18:45 Temp 98.4 98.2 98.4 98.2 Pulse 62 62 56 56 Resp 19 19 19 19 B/P (MAP) 148/102 (117) 166/112 (130) 191/121 (144) 180/106 (130) Pulse Ox 98 98 98 98 O2 Delivery Room Air Room Air Room Air Room Air 06/24/17 06/24/17 06/24/17 06/24/17 19:00 19:29 20:00 20:00 Pulse 52 52 60 B/P (MAP) 174/112 (132) 163/93 (116) 165/104 (124) O2 Delivery Room Air 06/24/17 06/24/17 06/24/17 06/24/17 20:29 20:44 21:37 21:43 Pulse 60 60 58 57 B/P (MAP) 175/105 (128) 180/104 (129) 180/106 167/100 (122) 06/24/17 06/25/17 06/25/17 06/25/17 22:22 03:09 03:53 07:00 Temp 98.5 99.0 98.9 98.5 99.0 98.9 Pulse 61 62 62 62 Resp 19 19 16 B/P (MAP) 158/88 (111) 166/109 (128) 166/109 160/106 (124) Pulse Ox 98 98 99 O2 Delivery Room Air Room Air Room Air 06/25/17 08:00 O2 Delivery Room Air COLBY JAMESON III DO Jun 25, 2017 11:37
[2017-06-25] MEDS ORDERED: POTASSIUM CHLORIDE 20 MEQ TABLET.ER. PO ONE (11:45)
--- NOTE | 2017-06-25 12:58 | CARD ---
APPROVED REPORT EXAM: Two-dimensional and M-mode echocardiogram with Doppler and color Doppler. INDICATION Dyspnea 2D DIMENSIONS RVDd2.9 (2.9-3.5cm)Left Atrium(2D)3.6 (1.6-4.0cm) IVSd1.8 (0.7-1.1cm)Aortic Root(2D)3.1 (2.0-3.7cm) LVDd5.9 (3.9-5.9cm)LVOT Diameter2.4 (1.8-2.4cm) PWd1.8 (0.7-1.1cm)LVDs3.8 (2.5-4.0cm) FS (%) 26.4 %SV114.8 ml LVEF(%)55.2 (>50%) Aortic Valve AoV Peak Jorge Luis.152.8cm/sAoV VTI26.8cm AO Peak GR.9.3mmHgLVOT Peak Jorge Luis.117.8cm/s LVOT VTI 20.25cmAO Mean GR.5mmHg TRESSA (VMAX)3.14pq6UPH (VTI)3.40cm2 Mitral Valve MV E Zdpyarfa60.6cm/sMV DECEL ROZN074do MV A Jckagwvo067.4cm/sMV E Mean Gr.2mmHg MV DWL59peY/A Ratio0.8 MV A [id number] (PHT)3.94cm2 TDI E/Lateral E'9.3E/Medial E'10.1 Pulmonary Valve PV Peak Rnmqbggz379.1cm/sPV Peak Grad.6mmHg RVOT VTI20.9cm Tricuspid Valve TR P. Riqygxnr382yx/sRAP ZCRUGMWR4ppYs TR Peak Gr.51kdToYKCD03ojXw Pulmonary Vein S1 Zkayctxe55.1cm/sD2 Njiagapf41.9cm/s LEFT VENTRICLE The left ventricle is normal size. There is moderate to severe concentric left ventricular hypertroph y. Left ventricle systolic function is normal. The Ejection Fraction is 55-60%. There is normal LV se gmental wall motion. Tissue Doppler imaging reveals mild left ventricular diastolic dysfunction. [place] smitral Doppler flow pattern is Grade I-abnormal relaxation pattern. There is no ventricular septal d efect visualized. RIGHT VENTRICLE The right ventricle is normal size. The right ventricular systolic function is normal. ATRIA The left atrium size is normal. The right atrium size is normal. The interatrial septum is intact wit h no evidence for an atrial septal defect or patent foramen ovale as noted on 2-D or Doppler imaging. AORTIC VALVE The aortic valve is normal in structure and function. The aortic valve is trileaflet. Doppler and Col or Flow revealed no significant aortic regurgitation. There is no significant aortic valvular stenosi s. MITRAL VALVE The mitral valve leaflets are thickened. There is no mitral valve stenosis. Doppler and Color Flow re vealed trace to mild mitral regurgitation. TRICUSPID VALVE The tricuspid valve is normal in structure and function. Doppler and Color Flow revealed trace tricus pid regurgitation. The PA pressure was estimated at 18 mmHg. There is no tricuspid valve stenosis. PULMONIC VALVE The pulmonic valve is not well visualized. Doppler and Color Flow revealed trace pulmonic valvular re gurgitation. There is no pulmonic valvular stenosis. GREAT VESSELS The aortic root is normal in size. The ascending aorta is normal in size. Normal pulmonary venous agustin w (Doppler). The IVC is normal in size and collapses >50% with inspiration. PERICARDIAL EFFUSION There is no evidence of significant pericardial effusion. Critical Notification Critical Value: No <Conclusion> Left ventricle systolic function is normal. The Ejection Fraction is 55-60%. There is normal LV segmental wall motion. Transmitral Doppler flow pattern is Grade I-abnormal relaxation pattern. Trace to mild mitral regurgitation. Trace tricuspid regurgitation. The PA pressure was estimated at 18 mmHg. There is no evidence of significant pericardial effusion.
[2017-06-25] MEDS ORDERED: CARV6.252 PO (16:48)
[2017-06-25] MEDS ORDERED: LISI10TA2 PO (16:48)
[2017-06-25] MEDS: CARVEDILOL 6.25 MG TABLET. PO SCH (17:17)
[2017-06-25] MEDS ORDERED: LISINOPRIL 5 MG TABLET. PO ONE (17:30)
[2017-06-25] MEDS ORDERED: ALPRAZolam 0.5 MG TABLET PO PRN (19:45)
[2017-06-25] MEDS: ATORVASTATIN CALCIUM 20 MG TABLET PO SCH (20:41)
[2017-06-25] MEDS ORDERED: ZOLPIDEM 5 MG TABLET. PO SCH (21:00)
[2017-06-26 02:58] VITALS: BP 141/101
[2017-06-26 07:00] VITALS: BP 145/102
[2017-06-26] MEDS: PRASUGREL 10 MG TABLET. PO SCH (08:46)
[2017-06-26] MEDS: ASPIRIN ENTERIC COATED 81 MG TABLET.DR. PO SCH (08:49)
[2017-06-26] MEDS: CARVEDILOL 6.25 MG TABLET. PO SCH ×2 (08:49→15:36)
[2017-06-26 08:57] LABS: CALCIUM 9.1 mg/dL (8.5-10.1); CREATININE 1.2 mg/dL (0.7-1.3); GFR 81.6; POTASSIUM 3.9 mmol/L (3.5-5.1)
[2017-06-26] MEDS ORDERED: LISI40TA PO (10:49)
[2017-06-26 11:00] VITALS: BP 155/100
--- NOTE | 2017-06-26 11:04 | PDOC ---
PROGRESS NOTES Chief Complaint Chief Complaint chest pain, SOA chest wall tenderness NSTEMI History of Present Illness History of Present Illness Mr. Muhammad was awake and sitting up in bed. His was present as well. Mr. Muhammad was alert and conversant with the healthcare team. Patient indicated he was ready to go home. Patient's asked how much and when patient would receive lisinopril because she was concerned the medication was not distributed. After consultation with GI via phone and discussion with nurse, patient will receive lisinopril and be discharged today if specialists agree. Patient was educated regarding signs of angioedema from ACEI and directed to seek care if ssx occurred. Vitals Vitals Vital Signs Date Time Temp Pulse Resp B/P (MAP) Pulse Ox O2 Delivery O2 Flow Rate FiO2 06/26/17 08:49 58 145/102 06/26/17 07:00 98.5 20 99 Room Air 98.5 Physical Exam Physical Exam Mr. Barth was awake and engaged in conversant with the healthcare team. He denied any chest pain at the moment. No difficulty breathing or lethargy. No pain, aching, or swelling in extremities Extremities were warm to palpation General: Alert, Oriented X3, Cooperative, No acute distress Heart: Regular rate, Normal S1, Normal S2 Lungs: Clear Abdomen: Normal bowel sounds, No tenderness Extremities: No clubbing, No cyanosis, No edema, Normal pulses Skin: No rashes, No breakdown, No significant lesion Labs LABS Laboratory Tests Test 06/26/17 08:35 Sodium Level 143 mmol/L (136-145) Potassium Level 3.9 mmol/L (3.5-5.1) Chloride Level 109 mmol/L (98-107) Carbon Dioxide Level 26 mmol/L (21-32) Anion Gap 8 (6-14) Blood Urea Nitrogen 12 mg/dL (8-26) Creatinine 1.2 mg/dL (0.7-1.3) Estimated GFR (Cockcroft-Gault) 81.6 Glucose Level 89 mg/dL (70-99) Calcium Level 9.1 mg/dL (8.5-10.1) Magnesium Level 2.0 mg/dL (1.8-2.4) Review of Systems Review of Systems patient indicated lethargy patient indicated hunger Assessment and Plan Assessmemt and Plan Problems Medical Problems: (1) Accelerated hypertension Status: Acute (2) Acute electrocardiogram changes Status: Acute (3) Chest pain Status: Acute (4) Non-STEMI (non-ST elevated myocardial infarction) Status: Acute Asseschest pain, SOA chest wall tenderness NSTEMIsment: Plan: 1. ok with cardio plan for patient care 2. instruct patient to avoid physical exertion for several weeks 3. instruct patient to follow up with PCP in 1 week 4. instruct patient to seek medical care if ssx of hf or angioedema occur 5. instruct patient to follow heart healthy diet. Problems: Comment Review of Relevant I have reviewed the following items sourav (where applicable) has been applied. Labs Laboratory Tests Test 06/24/17 14:30 06/24/17 17:06 06/25/17 01:00 06/25/17 04:45 White Blood Count 16.8 x10^3/uL (4.0-11.0) Red Blood Count 5.94 x10^6/uL (4.30-5.70) Hemoglobin 16.7 g/dL (13.0-17.5) Hematocrit 50.9 % (39.0-53.0) Mean Corpuscular Volume 86 fL (79-100) Mean Corpuscular Hemoglobin 28 pg (25-35) Mean Corpuscular Hemoglobin Concent 33 g/dL (31-37) Red Cell Distribution Width 15.0 % (11.5-14.5) Platelet Count 284 x10^3/uL (140-400) Neutrophils (%) (Auto) 69 % (31-73) Lymphocytes (%) (Auto) 21 % (24-48) Monocytes (%) (Auto) 8 % (0-9) Eosinophils (%) (Auto) 2 % (0-3) Basophils (%) (Auto) 1 % (0-3) Neutrophils # (Auto) 11.5 x10^3uL (1.8-7.7) Lymphocytes # (Auto) 3.5 x10^3/uL (1.0-4.8) Monocytes # (Auto) 1.4 x10^3/uL (0.0-1.1) Eosinophils # (Auto) 0.3 x10^3/uL (0.0-0.7) Basophils # (Auto) 0.1 x10^3/uL (0.0-0.2) Activated Partial Thromboplast Time 28 SEC (24-38) Sodium Level 144 mmol/L (136-145) Potassium Level 3.6 mmol/L (3.5-5.1) Chloride Level 104 mmol/L (98-107) Carbon Dioxide Level 29 mmol/L (21-32) Anion Gap 11 (6-14) Blood Urea Nitrogen 11 mg/dL (8-26) Creatinine 1.3 mg/dL (0.7-1.3) Estimated GFR (Cockcroft-Gault) 61.5 BUN/Creatinine Ratio 8 (6-20) Glucose Level 92 mg/dL (70-99) Calcium Level 9.8 mg/dL (8.5-10.1) Magnesium Level 2.2 mg/dL (1.8-2.4) Total Bilirubin 0.7 mg/dL (0.2-1.0) Aspartate Amino Transf (AST/SGOT) 78 U/L (15-37) Alanine Aminotransferase (ALT/SGPT) 43 U/L (16-63) Alkaline Phosphatase 166 U/L (46-116) Troponin I Quantitative 37.709 ng/mL (0.000-0.055) 32.302 ng/mL (0.000-0.055) 32.175 ng/mL (0.000-0.055) SU-Cuy-V-Type Natriuretic Peptide 3657 pg/mL (0-124) Total Protein 8.4 g/dL (6.4-8.2) Albumin 4.4 g/dL (3.4-5.0) Albumin/Globulin Ratio 1.1 (1.0-1.7) Activated Clotting Time 213 sec (92-181) Triglycerides Level 169 mg/dL (0-150) Cholesterol Level 161 mg/dL (0-200) LDL Cholesterol, Calculated 94 mg/dL (0-100) VLDL Cholesterol, Calculated 34 mg/dL (0-40) Non-HDL Cholesterol Calculated 128 mg/dL (0-129) HDL Cholesterol 33 mg/dL (40-60) Cholesterol/HDL Ratio 4.9 Test 06/25/17 07:43 06/26/17 08:35 Sodium Level 142 mmol/L (136-145) 143 mmol/L (136-145) Potassium Level 3.3 mmol/L (3.5-5.1) 3.9 mmol/L (3.5-5.1) Chloride Level 106 mmol/L (98-107) 109 mmol/L (98-107) Carbon Dioxide Level 26 mmol/L (21-32) 26 mmol/L (21-32) Anion Gap 10 (6-14) 8 (6-14) Blood Urea Nitrogen 11 mg/dL (8-26) 12 mg/dL (8-26) Creatinine 1.2 mg/dL (0.7-1.3) 1.2 mg/dL (0.7-1.3) Estimated GFR (Cockcroft-Gault) 81.6 81.6 Glucose Level 85 mg/dL (70-99) 89 mg/dL (70-99) Calcium Level 8.8 mg/dL (8.5-10.1) 9.1 mg/dL (8.5-10.1) Magnesium Level 2.0 mg/dL (1.8-2.4) 2.0 mg/dL (1.8-2.4) Troponin I Quantitative 30.382 ng/mL (0.000-0.055) Laboratory Tests Test 06/26/17 08:35 Sodium Level 143 mmol/L (136-145) Potassium Level 3.9 mmol/L (3.5-5.1) Chloride Level 109 mmol/L (98-107) Carbon Dioxide Level 26 mmol/L (21-32) Anion Gap 8 (6-14) Blood Urea Nitrogen 12 mg/dL (8-26) Creatinine 1.2 mg/dL (0.7-1.3) Estimated GFR (Cockcroft-Gault) 81.6 Glucose Level 89 mg/dL (70-99) Calcium Level 9.1 mg/dL (8.5-10.1) Magnesium Level 2.0 mg/dL (1.8-2.4) Medications Current Medications Sodium Chloride 1,000 ml @ 100 mls/hr Q10H IV Last administered on 06/24/17 14:34; Start 06/24/17 at 14:22; Stop 06/25/17 at 00:21; Status DC Aspirin (Children'S Aspirin) 324 mg 1X ONCE PO Last administered on 06/24/17 14:34; Start 06/24/17 at 14:30; Stop 06/24/17 at 14:31; Status DC Iohexol (Omnipaque 300 Mg/ml) 75 ml 1X ONCE IV Last administered on 06/24/17 14:56; Start 06/24/17 at 14:45; Stop 06/24/17 at 14:48; Status DC Info (Do NOT chart on this entry -- for MONITORING) 1 each PRN DAILY PRN MC SEE COMMENTS; Start 06/24/17 at 15:00; Stop 06/26/17 at 14:59; Status Cancel Iohexol (Omnipaque 300 Mg/ml) 75 ml STK-MED ONCE .ROUTE ; Start 06/24/17 at 14: 57; Stop 06/24/17 at 14:58; Status DC Nitroglycerin (Nitro-Bid Oint) 1 inch 1X ONCE TP Last administered on 15:20; Start 06/24/17 at 15:30; Stop 06/24/17 at 15:31; Status DC Nitroglycerin (Nitro-Bid Oint) 1 inch STK-MED ONCE .ROUTE ; Start 06/24/17 at 15 :18; Stop 06/24/17 at 15:19; Status DC Sodium Chloride 1,000 ml @ 100 mls/hr Q10H IV ; Start 06/24/17 at 11:30; Stop 06/24/17 at 21:29; Status DC Heparin Sodium (Porcine) (Heparin Sodium) 4,000 unit 1X ONCE IV Last administered on 06/24/17 15:43; Start 06/24/17 at 15:30; Stop 06/24/17 at 15:33 ; Status DC Heparin Sodium/ Dextrose 500 ml @ 0 mls/hr CONT PRN IV SEE I/O RECORD Last administered on 06/24/17 15:42; Start 06/24/17 at 15:30; Stop 06/25/17 at 09:57 ; Status DC Fentanyl Citrate (Fentanyl 2ml Vial) 100 mcg STK-MED ONCE .ROUTE ; Start at 15:42; Stop 06/24/17 at 15:43; Status DC Midazolam HCl (Versed) 5 mg STK-MED ONCE .ROUTE ; Start 06/24/17 at 15:43; Stop 06/24/17 at 15:44; Status DC Verapamil HCl (Verapamil) 5 mg STK-MED ONCE .ROUTE ; Start 06/24/17 at 15:43; Stop 06/24/17 at 15:44; Status DC Nitroglycerin (Nitroglycerin) 200 mcg STK-MED ONCE .ROUTE ; Start 06/24/17 at 15 :43; Stop 06/24/17 at 15:44; Status DC Iodixanol (Visipaque 320) 100 ml STK-MED ONCE .ROUTE ; Start 06/24/17 at 15:44; Stop 06/24/17 at 15:45; Status DC Lidocaine HCl 20 ml STK-MED ONCE .ROUTE ; Start 06/24/17 at 15:44; Stop at 15:45; Status DC Heparin Sodium/ Sodium Chloride 1,000 ml @ As Directed STK-MED ONCE .ROUTE ; Start 06/24/17 at 15:44; Stop 06/24/17 at 15:45; Status DC Ondansetron HCl (Zofran) 4 mg PRN Q8HRS PRN IV NAUSEA/VOMITING; Start 06/24/17 at 15:45; Stop 06/25/17 at 16:44; Status DC Morphine Sulfate 2 mg PRN Q2HR PRN IV PAIN; Start 06/24/17 at 15:45; Stop 06/25 at 16:44; Status DC Atorvastatin Calcium (Lipitor) 20 mg QHS PO Last administered on 06/25/17 20: 41; Start 06/24/17 at 21:00 Labetalol HCl (Normodyne) 20 mg PRN Q2HR PRN IVP HYPERTENSION, SEE COMMENTS Last administered on 06/25/17 20:43; Start 06/24/17 at 16:00 Tirofiban/Sodium Chloride 250 ml @ As Directed STK-MED ONCE IV ; Start at 17:00; Stop 06/24/17 at 17:01; Status DC Nitroglycerin (Nitroglycerin) 200 mcg 1X ONCE IART Last administered on 17:34; Start 06/24/17 at 17:15; Stop 06/24/17 at 17:22; Status DC Verapamil HCl (Verapamil) 2.5 mg 1X ONCE IART Last administered on 06/24/17 17:39; Start 06/24/17 at 17:15; Stop 06/24/17 at 17:22; Status DC Heparin Sodium (Porcine) (Heparin Sodium) 2,500 unit 1X ONCE IART Last administered on 06/24/17 17:36; Start 06/24/17 at 17:15; Stop 06/24/17 at 17:22 ; Status DC Heparin Sodium/ Sodium Chloride 1,000 unit 1X ONCE IART Last administered on 17:39; Start 06/24/17 at 17:15; Stop 06/24/17 at 17:22; Status DC Heparin Sodium/ Sodium Chloride 1,000 unit 1X ONCE IART Last administered on 17:40; Start 06/24/17 at 17:15; Stop 06/24/17 at 17:22; Status DC Midazolam HCl (Versed) 5 mg 1X ONCE IV Last administered on 06/24/17 17:35; Start 06/24/17 at 17:15; Stop 06/24/17 at 17:22; Status DC Fentanyl Citrate (Fentanyl 2ml Vial) 100 mcg 1X ONCE IV Last administered on 17:39; Start 06/24/17 at 17:15; Stop 06/24/17 at 17:22; Status DC Iodixanol (Visipaque 320) 100 ml 1X ONCE IART Last administered on 06/24/17 17:39; Start 06/24/17 at 17:15; Stop 06/24/17 at 17:22; Status DC Heparin Sodium (Porcine) (Heparin Sodium) 1,000 unit 1X ONCE IV Last administered on 06/24/17 17:37; Start 06/24/17 at 17:15; Stop 06/24/17 at 17:22 ; Status DC Lidocaine HCl 20 ml 1X ONCE IJ Last administered on 06/24/17 17:38; Start at 17:15; Stop 06/24/17 at 17:22; Status DC Tirofiban/Sodium Chloride 250 ml @ 15.7 mls/hr CONT PRN IV PER PROTOCOL Last administered on 06/25/17 03:53; Start 06/24/17 at 17:15; Stop 06/25/17 at 11:14 ; Status DC Info (Do NOT chart on this entry -- for MONITORING) 1 each PRN DAILY PRN MC SEE COMMENTS; Start 06/24/17 at 17:30; Stop 06/26/17 at 17:29 Nitroglycerin (Nitroglycerin) 200 mcg 1X ONCE ICAR Last administered on 17:34; Start 06/24/17 at 17:17; Stop 06/24/17 at 17:23; Status DC Prasugrel (Effient) 60 mg 1X ONCE PO Last administered on 06/24/17 17:34; Start 06/24/17 at 17:30; Stop 06/24/17 at 17:31; Status DC Prasugrel (Effient) 10 mg STK-MED ONCE .ROUTE ; Start 06/24/17 at 17:18; Stop at 17:19; Status DC Aspirin (Ecotrin) 81 mg DAILYWBKFT PO Last administered on 06/26/17 08:49; Start 06/25/17 at 08:00 Prasugrel (Effient) 10 mg DAILYWBKFT PO Last administered on 06/26/17 08:46; Start 06/25/17 at 08:00 Carvedilol (Coreg) 3.125 mg BIDWMEALS PO Last administered on 06/25/17 11:58; Start 06/25/17 at 11:15; Stop 06/25/17 at 16:53; Status DC Lisinopril (Prinivil) 5 mg DAILY PO Last administered on 06/25/17 11:58; Start 06/25/17 at 11:15; Stop 06/26/17 at 08:12; Status DC Potassium Chloride (Klor-Con) 40 meq 1X ONCE PO Last administered on 11:57; Start 06/25/17 at 11:45; Stop 06/25/17 at 11:46; Status DC Carvedilol (Coreg) 6.25 mg BIDWMEALS PO Last administered on 06/26/17 08:49; Start 06/25/17 at 17:30 Lisinopril (Prinivil) 5 mg 1X ONCE PO Last administered on 06/25/17 17:17; Start 06/25/17 at 17:30; Stop 06/25/17 at 17:31; Status DC Zolpidem Tartrate (Ambien) 5 mg HS PO Last administered on 06/25/17 20:41; Start 06/25/17 at 21:00 Alprazolam (Xanax) 0.5 mg PRN Q8HRS PRN PO ANXIETY / AGITATION; Start 06/25/17 at 19:45 Lisinopril (Prinivil) 40 mg DAILY PO ; Start 06/26/17 at 11:30 Active Scripts Active Lisinopril 40 Mg Tablet 1 Tab PO DAILY Effient (Prasugrel Hcl) 10 Mg Tablet 10 Mg PO DAILYWBKFT 30 Days Atorvastatin Calcium 40 Mg Tablet 1 Tab PO QHS Aspirin Ec (Aspirin) 81 Mg Tablet.dr 81 Mg PO DAILYWBKFT 30 Days Reported Carvedilol 6.25 Mg Tablet 1 Tab PO BID Vitals/I & O Vital Sign - Last 24 Hours 06/25/17 06/25/17 06/25/17 06/25/17 11:00 11:58 11:58 15:00 Temp 98.9 98.9 98.9 98.9 Pulse 74 62 62 71 Resp 20 18 B/P (MAP) 160/110 (127) 160/106 160/106 173/107 (129) Pulse Ox 99 99 O2 Delivery Room Air Room Air 06/25/17 06/25/17 06/25/17 06/25/17 17:17 17:17 19:37 20:00 Temp 98.8 98.8 Pulse 71 71 75 Resp 16 B/P (MAP) 173/107 173/107 181/124 (143) Pulse Ox 98 O2 Delivery Room Air Room Air 06/25/17 06/25/17 06/25/17 06/25/17 20:43 21:55 22:13 23:04 Temp 99.1 99.1 Pulse 75 75 65 65 Resp 16 B/P (MAP) 181/124 163/110 (127) 161/111 (128) 167/104 (125) Pulse Ox 96 O2 Delivery Room Air 06/25/17 06/26/17 06/26/17 06/26/17 23:58 02:58 07:00 08:49 Temp 98.5 98.5 98.5 98.5 Pulse 72 65 58 58 Resp 16 20 B/P (MAP) 157/77 (103) 141/101 (114) 145/102 (116) 145/102 Pulse Ox 98 99 O2 Delivery Room Air Room Air COLBY JAMESON III DO Jun 26, 2017 11:04
--- NOTE | 2017-06-26 11:18 | PDOC ---
CARDIO Progress Notes Date and Time Date of Service 06/26/17 Time of Evaluation 1015 Subjective Subjective: No Chest Pain, No shortness of breath, No Palpitations Vitals Vitals Vital Signs Date Time Temp Pulse Resp B/P (MAP) Pulse Ox O2 Delivery O2 Flow Rate FiO2 06/26/17 08:49 58 145/102 06/26/17 07:00 98.5 20 99 Room Air 98.5 Weight Weight [ ] Laboratory Labs Laboratory Tests Test 06/26/17 08:35 Sodium Level 143 mmol/L (136-145) Potassium Level 3.9 mmol/L (3.5-5.1) Chloride Level 109 mmol/L (98-107) Carbon Dioxide Level 26 mmol/L (21-32) Anion Gap 8 (6-14) Blood Urea Nitrogen 12 mg/dL (8-26) Creatinine 1.2 mg/dL (0.7-1.3) Estimated GFR (Cockcroft-Gault) 81.6 Glucose Level 89 mg/dL (70-99) Calcium Level 9.1 mg/dL (8.5-10.1) Magnesium Level 2.0 mg/dL (1.8-2.4) Physical Exam HEENT: Neck Supple W Full Motion Chest: Symmetric LUNGS: Clear to Auscultation Heart: S1S2, RRR Abdomen: Soft N/T Extremities: No Edema, No Calf Tenderness, Other (right radial arteriotomy site soft, clean, and dry. No erythema, ecchymosis, or hematoma present. Neurovascular status intact. ) Neurology: alert, oriented, follow commands Assessment Assessment 1. NSTEMI 2. CAD; cath revealed 1 vessel disease; s/p PCI/SOPHIE to RCA. 3. Malignant hypertension; labile. Coreg increased. BP elevated overnight. IV Labetalol administered 4. Dyspnea; resolved Recommendations Increase lisinopril. Secondary prevention measures including DAPT with ASA and Effient. High dose statin therapy. Add BB and RJ. Monitor BP. Notify office if consistently >150 Cardiac rehab referral Risk stratification modification F/u in our office with Dr. Carballo as previously scheduled. TASHA WASHINGTON APRN Jun 26, 2017 11:18
[2017-06-26] MEDS ORDERED: LISINOPRIL 40 MG TABLET. PO SCH (11:30)
[2017-06-26 15:00] VITALS: BP 158/113
[2017-06-26 15:36] VITALS: BP 156/89
== END 2017-06-26 15:50 | disposition home or self-care (01) | DRG 247 ==
LOC: ER 14:09 → 2 NORTH 15:32
PROVIDERS: ADMIT Internal Medicine; ATTEND Internal Medicine
PROC: 027034Z Dilation of Coronary Artery, One Artery with Drug-eluting Intraluminal Device, Percutaneous Approach (ICD-10-PCS; principal; 2017-06-24)
DX: I21.4 Non-ST elevation (NSTEMI) myocardial infarction (principal); I10 Essential (primary) hypertension; I25.119 Atherosclerotic heart disease of native coronary artery with unspecified angina pectoris; D72.829 Elevated white blood cell count, unspecified; Z91.19 Patient's noncompliance with other medical treatment and regimen; Z83.3 Family history of diabetes mellitus
CPT/HCPCS: 36415; 71010; 71275; 80048; 80053; 80061; 83735; 83880; 84484; 85025; 85347; 85730; 92928; 93005; 93306; 93454; 96361; 96374; 99152; 99153; C1713; C1725; C1769; C1887; C1892; J1644; J2250; J3010; J3490; J7030; Q9967; 99291-25; J2001; J3246

== ENCOUNTER 2017-07-20 11:35 | Emergency (ER) | payer OTHER, BC ==
[~2017-07-20] VITALS: Ht 170.2 cm; Wt 86.2 kg
[~2017-07-20 11:35] MED LIST changes: +ASPI-612 PO; +ATOR40TA59 PO; +CARV3.122 PO; +CARV6.252 PO; -IV NORMAL SALINE 1000ML BAG 1,000 ML IV SCH; +LISI-338 PO; +LISI10TA2 PO; +LISI40TA PO; +PRAS10TA9 PO
[2017-07-20 12:23] VITALS: BP 169/102
[2017-07-20] MEDS ORDERED: IBUP-1060 PO (12:48)
[2017-07-20] MEDS ORDERED: CYCL10TA2 PO (12:48)
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
== END 2017-07-20 12:57 | disposition home or self-care (01) ==
LOC: ER 11:35
DX: M54.6 Pain in thoracic spine (principal); M54.2 Cervicalgia; I10 Essential (primary) hypertension; I25.10 Atherosclerotic heart disease of native coronary artery without angina pectoris; V46.4XXA Person boarding or alighting a car injured in collision with other nonmotor vehicle, initial encounter; Y93.89 Activity, other specified; Y99.8 Other external cause status; Y92.481 Parking lot as the place of occurrence of the external cause
CPT/HCPCS: 99283